=== PATIENT | male | born 1985 | race Caucasian/White ===

== ENCOUNTER 2025-03-13 10:33 | Inpatient (IN) | payer OTHER ==
[~2025-03-13] VITALS: Ht 177.8 cm; Wt 65.7 kg
[~2025-03-13 10:33] MED LIST: HYDACE5 PO; IBUP400 PO; OXYACE5T PO; PENVK500 PO
[2025-03-13 15:07] VITALS: BP 114/94
[2025-03-13] MEDS ORDERED: LORazepam 2 MG/ML 1ML Injection IM PRN (15:40)
[2025-03-13] MEDS ORDERED: Aluminum Hydroxide 320MG/5ML 473 ML PO PRN (15:40)
[2025-03-13] MEDS ORDERED: Ondansetron 4 MG SoluTab MM PRN (15:45)
[2025-03-13] MEDS ORDERED: Polyethylene Glycol 3350 17 gm PO PRN (15:45)
[2025-03-13] MEDS ORDERED: Haloperidol Lactate Inj. 5 MG/ML Injection IM PRN (15:50)
[2025-03-13] MEDS ORDERED: DiphenhydrAMINE HCl 50 MG/ML 1ML Vial IM PRN (15:50)
[2025-03-13] MEDS ORDERED: FLU VACC TS2025-26(6MOS UP)/PF 45 MCG/0.5 ML SYRINGE IM SCH (15:50)
[2025-03-13 15:52] VITALS: BP 114/94
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
[2025-03-13 20:32] VITALS: BP 119/81
--- NOTE | 2025-03-14 06:00 | NUR ---
Patient is alert and oriented times four. He denies SI,HI but states he is having Auditory hallucinations. No visual or tactile hallucinations. Patient spent the majority of the evening in bed except to get up very briefly for a snack. Affect is depressed. Mood is frustrated. Will continue close monitoring every 15 minutes for comfort and safety
[2025-03-14 08:11] LABS: CHOL/HDL RATIO 2.5; Cholesterol 130 mg/dL (50-200); HDL Cholesterol 51 mg/dL (>39); LDL/HDL RATIO 1.3; Low Density Lipoprotein Chol 68 mg/dL (0-110); Triglycerides 53 mg/dL (30-160); Very Low Density Lipoprot Chol 10 mg/dL (6-32)
[2025-03-14] MEDS ORDERED: Multivitamins 1 Tab PO SCH (09:00)
--- NOTE | 2025-03-14 17:05 | NUR ---
SHIFT SUMMARY PT HAS BEEN COOPERATIVE ALL SHIFT WITH EXCEPTION OF MOMENTS WHEN HE PRESENTS WITH A VERY ANXIOUS AFFECT WHEN TALKING ABOUT NEEDING TO GET OUT OF HERE. WE WERE UNABLE TO FIND ANY PHONE NUMBERS OTHER THAN HIS OWN IN HIS PAPERWORK. HE STS HE HAS TO GET OUT OF HERE TO CHECK ON HIS GF, THAT SHE IS USING FENTY[employer] AND HE'S AFRAID SHE WILL OVERDOSE. EXPLAINED TO PT THAT HE JUST GOT HERE YESTERDAY AND WILL BE HERE AT LEAST 2-3 MORE DAYS. HE WASN'T HAPPY WITH THIS AND EXPLAINED WHAT A HOLD IS AND HOW THAT WORKS. PT TRIED CALLING HIS OWN PHONE #, WHICH IS WITH HIS GF IN HOPES SHE WOULD ANSWER. PT DENIED SI/HI/AVH AT MORNING MED PASS AND ASSESSMENT. HE HAS CONTINUED TO HAVE Q15 MIN VISUAL SAFETY CHECKS THROUGHOUT SHIFT.
[2025-03-14 20:23] VITALS: BP 110/80
--- NOTE | 2025-03-15 04:06 | NUR ---
SHIFT SUMMARY PT LAYING IN BED AT START OF SHIFT, AWAKES EASILY. NOTED MOOD FEELING "HOPELESS". PT DENIES ANY CURRENT SI, HI OR THOUGHTS OF SELF HARM. HE REPORTS HE WAS JUST HAVING A REALLY BAD DAY. HE IS IRRITABLE BUT COOPERATIVE. HE STATES HE ALWAYS HAS AUDITORY HALLUCINATIONS, DENIES ANY COMMAND HALLUCINATIONS. HE HAD EVENING SNACK AND WAS COMPLIANT WITH MEDS. HE REQUESTED AND RECEIVED PRN MELATONIN TO ASSIST WITH SLEEPING. HE WENT TO BED SHORTLY AFTER SNACK AND HAS REMAINED IN BED THROUGHOUT THE NIGHT. Q15 MINUTE CHECKS TO CONTINUE PER PT SAFETY.
[2025-03-15 08:57] VITALS: BP 113/91
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
--- NOTE | 2025-03-15 15:38 | NUR ---
IMPORTANT DISCHARGE INFORMATION PATIENT WILL BE DISCHARGING 03/16/25 AT 11:30 AM. [facility] WILL BE COMING TO PICK HIM UP. THEY CAN BE CONTACTED AT [phone]. HE WILL BE GOING TO [facility]. ALL PARTIES VERBALIZE AN UNDERSTANDING. HE CAN DO FOLLOW UP WITH OPEN ACCESS AT WALK IN CLINIC "[facility] HE HAS NOT BEEN ESTABLISHED WITH A PCP. PHARMACY: [facility] PATIENT REQUESTED THEIR FAX NUMBER IS [phone] DISCHARGE BACK PACK WITH WINTER GEAR AND SNACK PROVIDED FOR AT DISCHARGE.
--- NOTE | 2025-03-15 16:26 | NUR ---
SHIFT SUMMARY PT A/O X4; DENIES SI, HI, AVTH. PT DECLINING TO PARTICIPATE IN GROUP. HIS AFFECT IS IRRITABLE/DEPRESSED. PT REPORTS THAT HE IS DEPRESSED BECAUSE HE IS NOT LEAVING TODAY. PT TO POTENTIALLY DISCHARGE HOME TOMORROW. HE IS ROUNDED ON Q15 PER UNIT PROTOCOL FOR SAFETY AND WELLNESS.
[2025-03-15] MEDS ORDERED: OLAN10 PO (17:53)
[2025-03-15 21:18] VITALS: BP 105/73
--- NOTE | 2025-03-16 04:07 | NUR ---
SHIFT SUMMARY 39 YEAR OLD MALE PRESENTS MODERATELY GROOMED. PT STATED HE STAYS IN BED MOST OF THE DAY. HE SPOKE IN A CLEAR VOICE AT AN APPROPRIATE VOLUME. PT WAS ABLE TO MAKE ON EYE CONTACT, BUT DID NOT CONSISTENTLY HOLD IT DURING CONVERSATIONS. PT DENIED SI, HI, AND AVTH. PT WAS CALM AND INTERACTED WELL WITH STAFF. PT DID NOT ATTEND REC TIME ON THE [place]IE[place]. HE DID ATTEND SNACK. PT REQUESTED PRN OF MELATONIN PRIOR TO BEDTIME. PT WAS COMPLIANT WITH EVENING MEDICATIONS ADMINISTRATION. PT CONTINUES TO BE MONITOERED Q15 MINUTES FOR SAFETY AND CARE.
[2025-03-16 08:33] VITALS: BP 115/82
--- NOTE | 2025-03-16 11:30 | NUR ---
DISCHARGE SUMMARY DISCHARGE PACKET PRINTED, WITH LABS DONE THIS STAY, AND EXPLAINED TO PT. PT STATES UNDERSTANDING. ACKNOWLEDGEMENT FORM SIGNED. PT'S TOTE WITH BELONGINGS WAS PROVIDED TO PT BY A. PT CHANGED SELF AND GATHERED HIS BELOGINGS. BELONGINGS FORM SIGNED. PT AMBULATED OUT WITH HOUSELESS BACKPACK PROVIDED. TRANSPORTED TO [place] TO [facility] BY [facility]. MEDS FAXED TO [facility] IN [place], [place].
--- NOTE | 2025-03-16 11:37 | NUR ---
PATIENT BELONGINGS RETURNED
== END 2025-03-16 11:29 | disposition home or self-care (01) | DRG 885 ==
LOC: BHU 10:33
PROVIDERS: ADMIT Psychiatry & Neurology Psychiatry
DX: F20.0 Paranoid schizophrenia (principal); Z59.00 Homelessness unspecified; Z79.899 Other long term (current) drug therapy; F15.10 Other stimulant abuse, uncomplicated; F43.25 Adjustment disorder with mixed disturbance of emotions and conduct
CPT/HCPCS: 36415; 80061; 83036; A9270